=== PATIENT | female | born 1945 | race Caucasian/White ===

== ENCOUNTER → 2017-03-11 | Day surgery (SDC) | payer OTHER ==
[~2017-03-11] MED LIST: AMITRIPTYLINE H25 MG PO; AMLODIPINE BESYL5 MG PO; ANASTROZOLE1 MG PO; ANTACID GELATI1 EACH PO; ASPIR 8181 MG PO; ASPIRIN81 MG PO; B-121000 MCG PO; BACITRACIN 50,000 UNIT VIAL ONE; BUPIVACAINE HCL 0.5% INJ 30 ML VIAL INJ ONE; CEFAZOLIN SOD 1 GM VIAL ONE; CEPHALEXIN500 MG PO; CRESTOR20 MG PO; CYANOCOBAL1000 MCG/M IV; CYMBALTA60 MG PO; DEXAMETHASONE SOD PHOS INJ 4 MG/ML VIAL ONE; FAMOTIDINE 20 MG/2 ML VIAL IV ONE; FENTANYL CITRATE/PF 100MCG/2 ML INJ ONE; HEMOCYTE PLUS1 EACH; HEMOCYTE PLUS1 EACH PO; HUMALOG100 UNIT/1 SC; JANUVIA100 MG PO; LEVEMIR100 UNIT/1 SQ; LEVOTHYROXINE50 MCG PO; LIDOCAINE HCL 2% LOCAL INJ 5 ML SDV VIAL INJ ONE; LISINOPRIL2.5 MG PO; LYRICA50 MG PO; MAGNESIUM OXID400 MG PO; MAGOX 400400 MG PO; METOCLOPRAMIDE HCL 10 MG/2ML VIAL ONE; METOPROLOL SUCC25 MG PO; MIDAZOLAM HCL 2 MG/2 ML VIAL ONE; MULTIVITAMINS1 EAC7 PO; MUPIROCIN 2% OINT 22 GM TUBE ONE; NORCO 7.5-3251 EACH PO; OMEGA 3 1,0001 EACH PO; OMEPRAZOLE40 MG PO; ONDANSETRON HCL INJ 2 MG/ML VIAL ONE; PRAMIPEXOLE D0.25 MG PO; PRAVASTATIN SOD20 MG PO; PRAVASTATIN SOD40 MG PO; PROPOFOL IV EMULSION 10 MG/ML 20 ML VIAL ONE; ROCURONIUM BROMIDE 10 MG/ML 5ML VIAL ONE; SENNA LAX8.6 MG PO; SENNA-GEN8.6 MG PO; SEVOFLURANE INHAL SOLN 250 ML PEN BTL ONE; SUCCINYLCHOLINE 200 MG/10 ML SYR ONE; ULTRAM 50MG50 MG PO; ULTRAM50 MG PO; VIT B12 PO; VIT D3 PO
--- NOTE | 2017-03-11 16:08 | Operative Report ---
DATE OF PROCEDURE: March 11, 2017 PREOPERATIVE DIAGNOSIS: Dehiscence of left breast reconstruction wound. POSTOPERATIVE DIAGNOSIS: Dehiscence of left breast reconstruction wound. PROCEDURE PERFORMED: Debridement of skin and subcutaneous tissue and secondary closure of left breast reconstruction dehiscence. ANESTHESIA: General. HISTORY: The patient is a 72-year-old female who in December underwent left-sided mastectomy with immediate reconstruction with placement of allograft and an implant. The patient had an eschar on the upper flap, which was dry and adherent since the time of the initial surgery. The eschar apparently fell off last night. Patient came to the office today. It was noted that she has a full-thickness defect measuring approximately 1.5 cm x 3 cm long with exposed allograft. Risks, benefits and alternatives to treatment were discussed with the patient. It was felt that immediate secondary closure would be the best course of action. The patient now presents for definitive closure of the left breast dehiscence wound. DETAILS OF PROCEDURE: The patient was marked preoperatively in the holding area. She was brought to the operating theater. After the induction of adequate general anesthesia, she was prepped and draped in a supine position. A time out was performed. The procedure was begun by culturing the fluid that was on the surface of the allograft and sent for both aerobic and anaerobic studies. At this point, the skin edges were debrided back about 2 to 3 mm until good healthy edges were obtained. The edges were made hemostatic using electrocautery. At this point, copious lavage with antibiotic-containing solution was performed. After completing the irrigation, the wound was closed primarily using 2-0 nylon in interrupted horizontal mattress fashion. The wound was then dressed with Bactroban ointment and a sterile dressing. Patient tolerated the procedure well and was brought to the recovery room in satisfactory condition and discharged with a postoperative instruction sheet as well as a followup appointment. Job#: [id number]
--- NOTE | 2017-03-17 10:23 | Operative Report ---
DATE OF PROCEDURE: March 16, 2017 PREOPERATIVE DIAGNOSES 1. Right knee medial meniscus tear. 2. Right knee lateral meniscus tear. 3. Right knee degenerative joint disease of the knee. POSTOPERATIVE DIAGNOSES 1. Right knee medial meniscus tear. 2. Right knee lateral meniscus tear. 3. Right knee degenerative joint disease of the knee. OPERATIONS/PROCEDURES PERFORMED 1. Patient underwent a right knee examination under anesthesia. 2. Right knee arthroscopy. 3. Right knee partial medial meniscectomy. 4. Right knee partial lateral meniscectomy. 5. Right knee chondroplasty of the patella, trochlea, medial femoral condyle, medial tibial plateau, lateral femoral condyle, and lateral tibial plateau. CHEMISTRY TECHNICIAN: None. ANESTHESIA: General endotracheal intubation anesthesia. IV FLUIDS: Per the anesthesia record. BRIEF DESCRIPTION OF THE PATIENT'S OPERATIVE PROCEDURE: Ms. Dash was taken to the operating room and placed in the supine position on the operating table. Following induction of general anesthesia, as well as endotracheal intubation, the patient's right lower extremity was examined under anesthesia. She was found to have a mild effusion within the joint, but otherwise ligamentously stable knee. The patient's lower extremity was prepped and draped in a standard surgical fashion. A 2-portal technique was used to provide this patient arthroscopic evaluation of the knee joint. Examination of the suprapatellar pouch, medial and lateral gutters found no evidence of loose bodies. There was, however, evidence of chondromalacia of the patellar and trochlear surfaces. Scope was advanced in the medial compartment. Examination of the medial compartment demonstrated an undersurface tear of the medial meniscus. There was also chondromalacia of the articulating surfaces. A combination of biting forceps and motorized shaver were used to resect the torn portion of the meniscus. Chondroplasties of the medial femoral condyle and medial tibial plateau were performed at this time. Scope was then advanced into the intercondylar notch. The anterior cruciate ligament was identified and found to be intact. Scope was then advanced in the lateral compartment. Examination of the lateral compartment demonstrated a macerated lateral meniscus. There was also chondromalacia of the articulating surfaces. A combination of biting forceps and motorized shaver were used to resect the torn portion of the meniscus. Chondroplasties of the lateral femoral condyle and lateral tibial plateau were performed at this time. Scope was then advanced in the suprapatellar pouch, and chondroplasty of the patella and trochlea were performed. The knee was then deflated of its sterile normal saline. Each of the portal sites were closed using 4-0 nylon suture. The portal sites as well as knee itself were injected with 0.5% Marcaine with epinephrine. Sterile dressings were applied. The patient was then awakened and taken to the postanesthesia care unit in stable condition. Job#: [id number] FELICIA
== END | disposition home or self-care (01) ==
LOC: OR 13:27
PROVIDERS: ATTEND Plastic Surgery
DX: T81.31XA Disruption of external operation (surgical) wound, not elsewhere classified, initial encounter (principal); I25.810 Atherosclerosis of coronary artery bypass graft(s) without angina pectoris; I10 Essential (primary) hypertension; E11.9 Type 2 diabetes mellitus without complications; K21.9 Gastro-esophageal reflux disease without esophagitis; R56.9 Unspecified convulsions; I69.851 Hemiplegia and hemiparesis following other cerebrovascular disease affecting right dominant side; N20.0 Calculus of kidney; R06.02 Shortness of breath; Y83.4 Other reconstructive surgery as the cause of abnormal reaction of the patient, or of later complication, without mention of misadventure at the time of the procedure; Z79.4 Long term (current) use of insulin; Z95.1 Presence of aortocoronary bypass graft
CPT/HCPCS: 13160; 36415; 82948; 87071; 87075; 87205; J0690; J1100; J2001; J2250; J2405; J2765

== ENCOUNTER → 2017-03-16 | Day surgery (SDC) | payer OTHER ==
[2017-02-28 12:36] LABS: ANION GAP 17.9 mmol/L (8-16); CREATININE, SERUM 1.22 mg/dL (0.57-1.11); POTASSIUM 3.9 mmol/L (3.5-5.1)
[2017-02-28 14:46] LABS: BASOPHILS % 0.3 % (0.0-1.0); EOSINOPHILS # (AUTO) 0.1 (0.0-0.4); EOSINOPHILS % 1.8 % (0.0-6.0); HEMATOCRIT 34.5 % (34.2-44.1); HEMOGLOBIN 11.3 g/dL (12.0-16.0); LYMPHOCYTES # (AUTO) 2.1 (1.0-3.2); LYMPHOCYTES % 28.3 % (18.0-39.1); MEAN CORPUSCULAR HEMOGLOBIN 30.1 pg (28-32); MEAN CORPUSCULAR HGB CONC 32.8 g/dL (31-35); MEAN CORPUSCULAR VOLUME 91.8 fL (81-99); MONOCYTES # (AUTO) 0.5 (0.2-0.8); MONOCYTES % 7.4 % (4.4-11.3); NEUTROPHILS # (AUTO) 4.5 (2.1-6.9); NEUTROPHILS % 61.8 % (38.7-80.0); PLATELET COUNT 233 x10e3/uL (140-360); RED BLOOD COUNT 3.76 x10e6/uL (3.6-5.1)
[~2017-03-16] MED LIST changes: +ACETAMINOPHEN 1000 MG/100 ML 100 ML IV ONE; -BACITRACIN 50,000 UNIT VIAL ONE; -CEFAZOLIN SOD 1 GM VIAL ONE; +CEFAZOLIN SOD 2 GM/D5W 50ML 50 ML IV ONE; -DEXAMETHASONE SOD PHOS INJ 4 MG/ML VIAL ONE; -FAMOTIDINE 20 MG/2 ML VIAL IV ONE; -METOCLOPRAMIDE HCL 10 MG/2ML VIAL ONE; -MIDAZOLAM HCL 2 MG/2 ML VIAL ONE; -MUPIROCIN 2% OINT 22 GM TUBE ONE; -ROCURONIUM BROMIDE 10 MG/ML 5ML VIAL ONE; -SUCCINYLCHOLINE 200 MG/10 ML SYR ONE
--- NOTE | 2017-03-22 18:21 | Operative Report ---
DATE OF PROCEDURE: March 16, 2017 PREOPERATIVE DIAGNOSES 1. Right knee medial meniscus tear. 2. Right knee lateral meniscus tear. 3. Right knee degenerative joint disease of the knee. POSTOPERATIVE DIAGNOSES 1. Right knee medial meniscus tear. 2. Right knee lateral meniscus tear. 3. Right knee degenerative joint disease of the knee. OPERATIONS/PROCEDURES PERFORMED 1. The patient underwent a right knee examination under anesthesia. 2. Right knee arthroscopy. 3. Right knee partial medial meniscectomy. 4. Right knee partial lateral meniscectomy. 5. Right knee chondroplasty of the patella, trochlea, medial femoral condyle, and medial tibial plateau, lateral femoral condyle, and lateral tibial plateau. CELERY CUTTER: None ANESTHESIA: General endotracheal intubation anesthesia. IV FLUIDS: Per anesthesia record. BRIEF DESCRIPTION OF THE OPERATIVE PROCEDURE: Ms. Dash was taken to the operating room and placed in the supine position on the operating table. Following induction of general anesthesia, as well as endotracheal intubation, the patient's right lower extremity was examined under anesthesia. She was found to have a mild effusion within the knee joint, but otherwise ligamentously stable knee. The patient's right lower extremity was prepped and draped in the standard surgical fashion. A 2-portal technique was used to provide this patient arthroscopic evaluation of the knee joint. Examination of the suprapatellar pouch, medial and lateral gutters found no evidence of synovitis. There was, however, evidence of chondromalacia of the patella and trochlear surfaces. The scope was then advanced in the medial compartment. Examination of the medial compartment demonstrated an undersurface tear of the medial meniscus. There was also chondromalacia of the articulating surfaces. A combination of biting forceps and motorized shaver were used to resect the torn portion of the meniscus. Chondroplasties of the medial femoral condyle and medial tibial plateau were performed at this time. The scope was then advanced into the intercondylar notch. The anterior cruciate ligament was identified and found to be intact. The scope was then advanced into the lateral compartment, and examination of the lateral compartment demonstrated a macerated lateral meniscus. There was also chondromalacia of the articulating surfaces. A combination of biting forceps and motorized shaver were used to resect the torn portion of the lateral meniscus. Chondroplasties of the lateral femoral condyle and lateral tibial plateau were performed at this time. The scope was then advanced into the suprapatellar pouch, and chondroplasties of the patella and trochlea were performed. The knee was then deflated of its sterile normal saline. Each of the portal sites were closed using 4-0 nylon suture. The portal sites as well as the knee itself were then injected with 0.5% Marcaine with epinephrine. Sterile dressings were applied. The patient was awakened and taken to the postanesthesia care unit in stable condition. Job#: [id number] RI
== END | disposition home or self-care (01) ==
LOC: OR 08:29
PROVIDERS: ATTEND Specialist
DX: S83.241A Other tear of medial meniscus, current injury, right knee, initial encounter (principal); S83.281A Other tear of lateral meniscus, current injury, right knee, initial encounter; M17.0 Bilateral primary osteoarthritis of knee; S83.411A Sprain of medial collateral ligament of right knee, initial encounter; M22.41 Chondromalacia patellae, right knee; S83.262A Peripheral tear of lateral meniscus, current injury, left knee, initial encounter; S83.412A Sprain of medial collateral ligament of left knee, initial encounter; I25.810 Atherosclerosis of coronary artery bypass graft(s) without angina pectoris; K21.9 Gastro-esophageal reflux disease without esophagitis; E11.22 Type 2 diabetes mellitus with diabetic chronic kidney disease; I12.9 Hypertensive chronic kidney disease with stage 1 through stage 4 chronic kidney disease, or unspecified chronic kidney disease; N18.9 Chronic kidney disease, unspecified; X58.XXXA Exposure to other specified factors, initial encounter; Z01.812 Encounter for preprocedural laboratory examination; Z79.4 Long term (current) use of insulin; Z79.82 Long term (current) use of aspirin; Z86.73 Personal history of transient ischemic attack (TIA), and cerebral infarction without residual deficits; Z95.1 Presence of aortocoronary bypass graft
CPT/HCPCS: 29880; 36415 ×2; 80048; 82948; 85025; J2001; J2405

== ENCOUNTER 2017-11-09 14:55 | Observation (INO) | payer OTHER ==
[~2017-11-09] VITALS: Ht 162.6 cm; Wt 74.6 kg
[~2017-11-09 14:55] MED LIST changes: -ACETAMINOPHEN 1000 MG/100 ML 100 ML IV ONE; -BUPIVACAINE HCL 0.5% INJ 30 ML VIAL INJ ONE; -CEFAZOLIN SOD 2 GM/D5W 50ML 50 ML IV ONE; -FENTANYL CITRATE/PF 100MCG/2 ML INJ ONE; +K DUR10 MEQ PO; +LASIX40 MG PO; +LEVOTHYROXINE75 MCG PO; -LIDOCAINE HCL 2% LOCAL INJ 5 ML SDV VIAL INJ ONE; +NIFEDIPINE ER30 M1 PO; +NOVOLOG100 UNITS1 SQ; -ONDANSETRON HCL INJ 2 MG/ML VIAL ONE; -PROPOFOL IV EMULSION 10 MG/ML 20 ML VIAL ONE; -SEVOFLURANE INHAL SOLN 250 ML PEN BTL ONE; +TESSALON PERLE100 MG PO
[2017-11-09 16:10] LABS: BASOPHILS % 0.4 % (0.0-1.0); EOSINOPHILS # (AUTO) 0.2 (0.0-0.4); EOSINOPHILS % 2.2 % (0.0-6.0); HEMATOCRIT 30.1 % (34.2-44.1); HEMOGLOBIN 9.3 g/dL (12.0-16.0); LYMPHOCYTES # (AUTO) 1.5 (1.0-3.2); LYMPHOCYTES % 18.9 % (18.0-39.1); MEAN CORPUSCULAR HEMOGLOBIN 28.9 pg (28-32); MEAN CORPUSCULAR HGB CONC 30.9 g/dL (31-35); MEAN CORPUSCULAR VOLUME 93.5 fL (81-99); MONOCYTES # (AUTO) 0.7 (0.2-0.8); MONOCYTES % 8.4 % (4.4-11.3); NEUTROPHILS # (AUTO) 5.5 (2.1-6.9); NEUTROPHILS % 69.6 % (38.7-80.0); PLATELET COUNT 233 x10e3/uL (140-360); RED BLOOD COUNT 3.22 x10e6/uL (3.6-5.1)
--- NOTE | 2017-11-09 16:12 | Diagnostic Imaging Report ---
A single frontal view of the chest. HISTORY: Trouble breathing, weak, previous history provided for ultrasound guided thoracentesis states left pleural effusion, breast cancer COMPARISON: Chest radiograph August 08, 2017. DISCUSSION: Portable technique, limits sensitivity of the exam. Numerous overlying monitoring leads. Tubes/Lines: Unchanged appearance of the right-sided chest port. Lungs and pleura: Low lung volumes result in bibasilar vascular crowding, accentuation of the pulmonary interstitial markings, central pulmonary vasculature, and the cardiac silhouette. Allowing for these limitations, the findings are as follows: Confluent opacity obscures the left mid to lower lung zone. Increased interstitial and patchy airspace opacities of the left upper lung zone. Confluent opacity at the right inferior lung zone. Prominent diffuse right interstitial markings. Underlying pathology could be obscured. Heart and mediastinum: The cardiac silhouette is predominantly obscured. Bones: Multiple median sternotomy wires. IMPRESSION: 1. Moderate to large left pleural effusion with adjacent atelectasis. 2. Asymmetric pulmonary edema versus pulmonary metastatic disease given the previously provided history of breast cancer. Signed by: Dr. Carlton Darling D.O., M.M.M. on 11/09/2017 4:08 PM
[2017-11-09 16:26] LABS: ALBUMIN 3.5 g/dL (3.5-5.0); ALBUMIN/GLOBULIN RATIO 0.9 (0.8-2.0); ANION GAP 21.2 mmol/L (8-16); CALCIUM 9.3 mg/dL (8.4-10.2); CREATININE, SERUM 2.61 mg/dL (0.57-1.11); POTASSIUM 4.2 mmol/L (3.5-5.1)
[2017-11-09 16:34] LABS: CREATINE KINASE MB 2.1 ng/mL (0-5.0)
[2017-11-09] MEDS ORDERED: LEVSIN0.125 MG PEG (16:59)
[2017-11-09] MEDS ORDERED: MORPHINE SULFAT30 M2 PO ×2 (16:59)
[2017-11-09] MEDS ORDERED: AMIODARONE HCL200 MG PO (16:59)
[2017-11-09] MEDS ORDERED: LORAZEPAM0.5 MG PO (16:59)
[2017-11-09 18:19] LABS: INR 1.11; PROTHROMBIN TIME 13.5 seconds (11.9-14.5)
[2017-11-09 18:23] VITALS: BP 136/70
[2017-11-09 19:45] VITALS: BP 106/58
[2017-11-09 20:00] VITALS: BP 106/58
[2017-11-09 20:05] VITALS: BP 106/58
[2017-11-09] MEDS ORDERED: MORPHINE S100 MG/5 M PO (20:54)
[2017-11-09] MEDS ORDERED: HYOSCYAMINE 0.125 MG TAB PEG PRN (21:00)
[2017-11-09] MEDS ORDERED: LORAZEPAM 0.5 MG TAB PO PRN (21:00)
[2017-11-09] MEDS ORDERED: MORPHINE PO PRN (21:30)
[2017-11-09 23:44] VITALS: BP 106/54
[2017-11-10] VITALS (7 sets, daily range): BP systolic 101–126; BP diastolic 49–68
[2017-11-10] MEDS: LEVOTHYROXINE SODIUM 75 MCG TAB PO SCH (06:00)
[2017-11-10] MEDS ORDERED: ASPIRIN 81 MG CHEW TAB PO SCH (09:00)
--- NOTE | 2017-11-10 09:43 | History and Physical ---
CHIEF COMPLAINT: Increasing shortness of breath and recurrent pleural effusion secondary to metastatic breast cancer. HISTORY OF PRESENT ILLNESS: The patient is a 72-year-old female who came in with moderate to large left pleural effusion with atelectasis. Patient is otherwise stable. She is on [facility] program due to her metastatic advanced stage breast cancer. The patient is otherwise stable. She is on observation for thoracentesis. PAST MEDICAL HISTORY: Metastatic breast cancer, hypothyroidism, dyslipidemia, chronic anemia, hypertension, diabetes type 2 on insulin therapy, recurrent pneumonia. PAST SURGICAL HISTORY: Breast surgery, multiple liver biopsies, mastectomy, skin graft, partial colon resection secondary to colon cancer. SOCIAL HISTORY: The patient lives at home with her family. She does not smoke or use alcohol. No recreational drugs. HOME MEDICATIONS: List reviewed. ALLERGIES: ADHESIVE TAPE. REVIEW OF SYSTEMS: As mentioned. PHYSICAL EXAMINATION GENERAL: The patient is in no acute distress. She is awake. VITAL SIGNS: Temperature is 98. Blood pressure 101/49. Pulse rate is 60. Respirations 18. HEENT: Normocephalic, atraumatic. Sclerae are anicteric. NECK: Supple grossly. PULMONARY: Diminished breath sounds heard all bilaterally, worse on the left compared to the right. CARDIOVASCULAR: Regular rate and rhythm. ABDOMEN: Soft, nontender. No distention. EXTREMITIES: No cyanosis or edema. NEUROLOGIC: No focal deficit. LABORATORY: Sodium is 132, potassium 4.2, chloride 89, bicarb 26, BUN 52, creatinine 2.6, glucose . WBC 7.8, hemoglobin 9.3, hematocrit 30.1 and platelets 232. IMPRESSION 1. Left pleural effusion, large to moderate. 2. Metastatic breast cancer. PLAN: Left thoracentesis today and then subsequently going home. The patient will most likely need hospice care. Job#: [id number]
--- NOTE | 2017-11-10 12:43 | Diagnostic Imaging Report ---
PROCEDURE: ULTRASOUND GUIDED THORACENTESIS COMPARISON: [facility], DX, CHEST SINGLE (PORTABLE), 11/09/2017, 15:51. INDICATIONS:pleural effusion FINDINGS: After informed consent was obtained, the patient was placed in the sitting position and preliminary ultrasound of the posterior chest identified a safe route into the left pleural effusion. The overlying skin was prepped and draped in usual sterile fashion. Lidocaine 1% was used for local anesthesia. Under ultrasound guidance, a 5 Telugu sheathed centesis needle was advanced into the pleural fluid and 700 cc of blood-tinged fluid were aspirated. The patient tolerated the procedure well and there were no immediate post-procedural complications. A post-thoracentesis chest radiograph will be obtained. CONCLUSION: Uncomplicated ultrasound-guided left thoracentesis with removal of 700 cc of blood-tinged fluid. Roni Nolen D.O. Dictated by: Roni Nolen D.O. on 11/10/2017 at 12:49 Electronically approved by: Roni Nolen D.O. on 11/10/2017 at 12:49
[2017-11-10] MEDS: POTASSIUM CHLORIDE 10 MEQ TABCR PO SCH (12:51)
[2017-11-10] MEDS: AMIODARONE HCL 200 MG TAB PO SCH (12:51)
[2017-11-10] MEDS: FUROSEMIDE 40 MG TAB PO SCH (12:59)
--- NOTE | 2017-11-10 13:24 | Diagnostic Imaging Report ---
EXAM: CHEST XRAY POST PROCEDURE, PA and lateral DATE: 11/10/2017 12:15 PM Time stamp on exam: 12:26 PM INDICATION: Status post thoracentesis COMPARISON: Chest x-ray dated 11/09/[address] dated 08/08/2017 FINDINGS: LINES/TUBES: Right IJ chest port again noted. LUNGS: Round opacity in the right lower lobe in comparison to the chest CT most likely represents a pseudotumor and fluid within the fissure. Mild pulmonary vascular congestion. PLEURA: Decrease in size of the left pleural effusion. No pneumothorax. HEART AND MEDIASTINUM: The heart is enlarged. BONES AND SOFT TISSUES: No acute findings. IMPRESSION: 1. Cardiomegaly with mild pulmonary congestion. 2. Decrease in the size of the left pleural effusion without evidence of a postprocedure pneumothorax. Signed by: Dr. Roni Nolen DO on 11/10/2017 1:20 PM
[2017-11-10] MEDS: MORPHINE SULFATE 30 MG TAB ER PO SCH (20:53)
[2017-11-10] MEDS: DULOXETINE HCL 30 MG DELAYED RELEASE PO SCH (20:53)
[2017-11-11 00:10] VITALS: BP 107/52
[2017-11-11 03:45] VITALS: BP 127/56
[2017-11-11] MEDS: LEVOTHYROXINE SODIUM 75 MCG TAB PO SCH (06:31)
[2017-11-11 08:00] VITALS: BP 105/51
[2017-11-11] MEDS: DULOXETINE HCL 30 MG DELAYED RELEASE PO SCH (08:40)
[2017-11-11] MEDS: AMIODARONE HCL 200 MG TAB PO SCH (08:40)
[2017-11-11] MEDS: MORPHINE SULFATE 30 MG TAB ER PO SCH (08:40)
[2017-11-11 12:00] VITALS: BP_SYST 105; BP_DIAS 49; BP_DIAS 51
[2017-11-11] MEDS: FUROSEMIDE 40 MG TAB PO SCH (12:50)
[2017-11-11] MEDS: POTASSIUM CHLORIDE 10 MEQ TABCR PO SCH (12:50)
--- NOTE | 2017-11-11 16:03 | Discharge Summary ---
PRIMARY CARE PHYSICIAN: Dr. Harmony Smith. ATTENDING: Dr. Louie Xiao. FINAL DIAGNOSES 1. Symptomatic left pleural effusion, status post left thoracentesis, ultrasound-guided; approximately 700 mL of blood-tinged effusion removed. 2. Metastatic breast cancer, advanced. SUMMARY: Patient is a 72-year-old female on hospice, apparently came in with increasing shortness of breath, not feeling well. She had a left pleural effusion. She had approximately 700 mL of therapeutic thoracentesis fluid came out. Patient is otherwise stable. No pneumothorax. Discussed with the patient and her daughter regarding continue with hospice care and that this can be done as an outpatient if this reoccurred. The patient expressed understanding. The patient will be discharged home today. Job#: [id number] KHALIF
== END 2017-11-11 13:06 | disposition home or self-care (01) ==
LOC: ER 14:55 → ERHOLD 17:24 → IMCU 18:09
PROVIDERS: ADMIT Internal Medicine; ATTEND Internal Medicine
DX: C50.919 Malignant neoplasm of unspecified site of unspecified female breast (principal); J91.0 Malignant pleural effusion; J98.11 Atelectasis; E03.9 Hypothyroidism, unspecified; E78.5 Hyperlipidemia, unspecified; E11.9 Type 2 diabetes mellitus without complications; Z79.4 Long term (current) use of insulin; Z85.038 Personal history of other malignant neoplasm of large intestine
CPT/HCPCS: 32555 ×2; 36415; 71045 ×2; 74470; 80053; 82550; 82553; 83690; 84484; 85025; 85610; 93005; 96360; 99284; G0378 ×3